=== PATIENT | female | born 1995 | race Caucasian/White ===

== ENCOUNTER → 2020-11-27 10:17 | Outpatient (CLI) | payer BC, SELFPAY ==
[2020-11-27 12:50] LABS: TSH w/ Reflex to FT4 3.98 uIU/mL (0.47-4.68)
== END ==
PROVIDERS: PCP Registered Nurse Diabetes Educator; Referring Provider Registered Nurse Diabetes Educator; Visit Provider Registered Nurse Diabetes Educator
DX: E03.9 Hypothyroidism, unspecified (principal)
CPT/HCPCS: 36415; 84443